=== PATIENT | female | born 1995 | race Caucasian/White ===

== ENCOUNTER 2017-07-07 17:55 | Observation (INO) | payer MEDICAID ==
[~2017-07-07] VITALS: Ht 160 cm; Wt 94.3 kg
[~2017-07-07 17:55] MED LIST changes: -NIFE10CA38 PO
[2017-07-07] MEDS ORDERED: BETAMETHASONE/ACETATE 6 MG/1ML IM ONLY SCH (18:30)
[2017-07-07] MEDS: NIFEdipine 10 MG CAP PO SCH ×2 (19:00→22:58)
[2017-07-07] MEDS ORDERED: LR(*) 1000 ML BAG 1,000 ML ONE ×2 (19:19→22:20)
[2017-07-07 19:35] LABS: PLATELET COUNT, AUTOMATED 280 K/uL (150-450)
[2017-07-07] MEDS ORDERED: TERBUTALINE SULF 1 MG/ML VIAL SC ONE (20:20)
[2017-07-07] MEDS ORDERED: TERBUTALINE SULF 1 MG/ML VIAL ONE (20:27)
--- NOTE | 2017-07-07 20:37 | History & Physical ---
History of Present Illness Age of Patient: 21 : 4 Para or TPAL: 1021 EDC per LMP: Sep 07, 2017 Estimated Gestational Age: 31.1 Chief Complaint contractions History of Present Illness The patient is a 21 year old 4 para 1021 admitted at 31 1/7 weeks estimated gestational age with an estimated date of delivery 09/07/17. Patient is admitted with complaint of contractions with positive FFN. She did have intercourse this am which may have affected the test but has continued to have pressure and tightening. No vaginal bleeding. Good movement and occasional contractions. She was evaluated for active labor. She had an uncomplicated course. Her record was reviewed. History Allergies: Coded Allergies: No Known Drug Allergies (Unverified , 01/16/17) Med Rec Home Meds Reported Medications Vits W-Ca,Fe,Fa(<1MG) ( VITAMINS) 1 Each Tablet, 1 EACH PO DAILY, TAB 01/16/17 Review of Systems Constitutional: No Fever, No Weight Loss Neurological: No Syncope, No Confusion Eyes: No Vision Change, No Loss of Vision ENT: No Hearing Loss, No Sinus Congestion Cardiovascular: No Chest Pain, No Palpitations Respiratory: No Shortness of Breath, No Cough Gastrointestinal: No Nausea, No Vomiting Genitourinary: No Dysuria, No Hematuria Musculoskeletal: No Pain, No Sprain Psychiatric: No Depression, No Anxiety Exam General Exam General Apperance: Alert/Awake/No Acute Distress Neuro: No Gross deficits Eyes: Normal Extraocular Movement & Vison ENT: Moist Mucous Membranes Neck: No Masses Cardiovascular: Regular Rate and Rhythm Respiratory: Clear to Auscultation Abdomen: Gravid - Non-Tender Musculoskeletal: No Weakness/Pain Extremities: No Cyanosis,Clubbing or Edema Integumentary: Skin Intact without Lesions or Rash Psychological: Alert & Oriented X3, Appropriate Mood & Affect Cervical Dialation: 1 Cervical Effacement (%): 50 Cervical Consistency: Soft Cervical Position: Mid Station: -3 Presentation: Vertex Uterine Contractions(Q min): 20 Uterine Contraction Strength: Mild Fetus Heart Tones: 140 FHT Category: I Medical Decision Making Data Points Result Diagram: 07/07/171919 Assessment and Plan Problems: (1) Threatened premature labor complicating , less than 37 weeks in third trimester, antepartum Assessment & Plan: FFN positive but had sex morning prior to test. Despite that has had pressure and uterine irritability through out day. Received celestone and procardia. Cervix unchanged will see if able to calm uterus through night. Copies to: BUCKY BAUMANN MD, JOHN MD Jul 07, 2017 20:37
[2017-07-07 22:00] VITALS: BP 120/59; Ht 160 cm; Wt 94.3 kg
[2017-07-07] MEDS ORDERED: DLR(*) 1000 ML BAG 1,000 ML IV PRN (22:25)
[2017-07-07] MEDS ORDERED: LR(*) 1000 ML BAG 1,000 ML IV PRN (22:25)
[2017-07-08] MEDS: NIFEdipine 10 MG CAP PO SCH ×2 (02:56→04:06)
[2017-07-08] MEDS ORDERED: NIFEdipine 10 MG CAP PO SCH (11:00)
[2017-07-08] MEDS ORDERED: NIFE10CA38 PO (18:27)
== END 2017-07-08 02:55 | disposition home or self-care (01) ==
LOC: OB 17:55
PROVIDERS: ADMIT Obstetrics & Gynecology; ATTEND Obstetrics & Gynecology
DX: O47.03 False labor before 37 completed weeks of gestation, third trimester (principal); Z3A.31 31 weeks gestation of pregnancy
CPT/HCPCS: 59025; 81001; 85025; 96372; G0378; G0379; J0702; J3105; J7120

== ENCOUNTER → 2017-07-07 | Outpatient (REF) | payer MEDICAID ==
[~2017-07-07] MED LIST: NIFE10CA38 PO; PREN-127 PO
== END ==
LOC: ZZSENDIN 16:21
PROVIDERS: ATTEND Obstetrics & Gynecology
DX: O60.03 Preterm labor without delivery, third trimester (principal)
CPT/HCPCS: 82731

== ENCOUNTER 2017-07-08 17:52 | Observation (INO) | payer MEDICAID ==
[~2017-07-08] VITALS: Ht 160 cm; Wt 94.3 kg
--- NOTE | 2017-07-08 18:15 | History & Physical ---
History of Present Illness Age of Patient: 21 : 4 Para or TPAL: 1 Estimated Gestational Age: 31.2 Chief Complaint steroid injection History of Present Illness here for repeat steroid injection due to threatened PTL yesterday. Had a positive ffn in office but later admitted to having sex. She was observed for a while yesterday and not in labor. Sent home after steroid injection. Here for repeat dose. History Obstetrical History: prior vaginal delivery at 40 weeks Allergies: Coded Allergies: No Known Drug Allergies (Unverified , 01/16/17) Med Rec Home Meds Reported Medications Vits W-Ca,Fe,Fa(<1MG) ( VITAMINS) 1 Each Tablet, 1 EACH PO DAILY, TAB 01/16/17 Review of Systems All Systems Reviewed/Normal: Yes, Except as Noted Medical Decision Making VTE Prophylasis: Adult Deep Vein Thrombosis/Pulmonary: No Pharmacological Contraindicati: Pt at Low Risk for VTE Mechanical Contraindications: Pt at Low Risk for VTE Assessment and Plan Problems: (1) Threatened labor, antepartum Assessment & Plan: Celestone to complete steroids. Observe for signs of labor and home if stable. GABRIEL COUCH MD Jul 08, 2017 18:15
[2017-07-08] MEDS ORDERED: NIFE10CA38 PO (18:27)
[2017-07-08 18:28] VITALS: BP 121/56; Ht 160 cm; Wt 94.3 kg
[2017-07-08] MEDS ORDERED: NIFEdipine 10 MG CAP PO ONE (18:30)
[2017-07-08] MEDS ORDERED: BETAMETHASONE/ACETATE 6 MG/1ML IM ONLY ONE (18:30)
== END 2017-07-08 19:40 | disposition home or self-care (01) ==
LOC: OB 17:52
PROVIDERS: ADMIT Obstetrics & Gynecology; ATTEND Obstetrics & Gynecology
DX: O47.03 False labor before 37 completed weeks of gestation, third trimester (principal); Z3A.31 31 weeks gestation of pregnancy
CPT/HCPCS: G0378; G0379; J0702

== ENCOUNTER 2017-08-30 15:27 | Inpatient (IN) | payer MEDICAID ==
[~2017-08-30] VITALS: Ht 160 cm; Wt 95.3 kg
[~2017-08-30 15:27] MED LIST changes: +NIFE10CA38 PO
[2017-08-30 15:40] VITALS: BP 127/81
[2017-08-30 16:00] VITALS: Ht 160 cm; Wt 95.3 kg
[2017-08-30] MEDS ORDERED: FAMOTIDINE(*) 20MG/50ML PREMIX 50 ML IVPB PRN (16:39)
[2017-08-30] MEDS ORDERED: OXYTOCIN 30 UNIT/D5LR 500 ML 500 ML IV PRN ×2 (16:39)
[2017-08-30] MEDS ORDERED: DLR(*) 1000 ML BAG 1,000 ML IV PRN (16:40)
[2017-08-30] MEDS ORDERED: METOCLOPRAMIDE 10 MG/2 ML SDV IVP PRN (16:40)
[2017-08-30] MEDS ORDERED: cefOXitin/DEX(*) 2GM/50ML PREM 50 ML IVPB PRN (16:40)
[2017-08-30] MEDS ORDERED: LIDOCAINE/SOD BICARB 8.4% SYR SC PRN (16:40)
[2017-08-30] MEDS ORDERED: LIDOCAINE 1% LOCAL 300 MG/30ML INJ PRN (16:40)
[2017-08-30] MEDS ORDERED: fentaNYL CITR 100 MCG/2 ML AMP IVP PRN (16:40)
[2017-08-30] MEDS ORDERED: FLUSH 10 ML SYR IVP PRN (16:40)
[2017-08-30] MEDS ORDERED: EPIDURAL KEYS XX PRN (16:50)
[2017-08-30] MEDS ORDERED: LIDOCAINE/PF 2% 200MG/10ML AMP 200 MG/10 ML AMPUL EPI PRN (16:50)
[2017-08-30] MEDS ORDERED: LIDO/EPI 2% MPF 1:200,000 20ML EPI PRN (16:50)
[2017-08-30] MEDS ORDERED: FENTANYL/ROPIVACAINE 100 ML BAG EPI PRN (16:50)
[2017-08-30] MEDS ORDERED: PENICILLIN G 5 MILLUN/100 ML 100 ML IVPB ONE (17:30)
[2017-08-30 17:31] LABS: PLATELET COUNT, AUTOMATED 289 K/uL (150-450)
[2017-08-30] MEDS: LR(*) 1000 ML BAG 1,000 ML IV SCH ×2 (17:40→19:56)
--- NOTE | 2017-08-30 18:34 | History & Physical ---
History of Present Illness Age of Patient: 21 : 4 Para or TPAL: 1021 EDC per LMP: Sep 07, 2017 Estimated Gestational Age: 38.6 Chief Complaint contractions History of Present Illness The patient is a 21 year old 4 para 1021 admitted at 38 6/7 weeks estimated gestational age with an estimated date of delivery 09/07/17. Patient is admitted with complaint of contractions. No vaginal bleeding. Good movement and regular contractions. She was evaluated for active labor. She had course complicated by threatened labor . Her record was reviewed. History Allergies: Coded Allergies: No Known Drug Allergies (Unverified , 01/16/17) Med Rec Home Meds Reported Medications Nifedipine (PROCARDIA) 10 Mg Capsule, 20 MG PO Q4H, CAPSULE 07/08/17 Vits W-Ca,Fe,Fa(<1MG) ( VITAMINS) 1 Each Tablet, 1 EACH PO DAILY, TAB 01/16/17 Exam General Exam Cardiovascular: Regular Rate and Rhythm Respiratory: Clear to Auscultation Abdomen: Gravid - Non-Tender Extremities: No Edema Cervical Dialation: 6 Cervical Effacement (%): 100 Cervical Consistency: Soft Cervical Position: Anterior Station: 0 Uterine Contractions(Q min): 4 Uterine Contraction Strength: Moderate Fetus Heart Tones: 130 Heart Tone Variabilty: Moderate FHT Category: I Medical Decision Making Data Points Result Diagram: 08/30/17 7163 Assessment and Plan Problems: (1) Active labor at term Assessment & Plan: spontaneous labor, arom clear fluid, epidural in, receiving PCN for GBS prophylaxis Copies to: BUCKY BAUMANN MD, JOHN MD Aug 30, 2017 18:34
--- NOTE | 2017-08-30 19:01 | Anesthesia OB Pre-Anes Eval ---
History of Present Illness Anesthesia Start Date: Aug 30, 2017 Anesthesia Start Time: 18:15 OB Anesthesia Diagnosis: spontaneous ROM EDC: Sep 07, 2017 : 4 Para: 1 Pain Ratin Result Diagram: 08/30/17 1723 Height (Inches): 63.00 Weight (Pounds): 210 BMI Calculated: 37.20 Past Medical History Medical History: no pertinent history Surgical History: no surgical history Previous Anesthesia: epidural Attended Childbirth Classes?: Attended [employer] Lecture Hx Anesthesia Reactions: No Hx Family Anesthesia Reaction: No Current Medications: other (pnv) Home Meds Reported Medications Nifedipine (PROCARDIA) 10 Mg Capsule, 20 MG PO Q4H, CAPSULE 07/08/17 Vits W-Ca,Fe,Fa(<1MG) ( VITAMINS) 1 Each Tablet, 1 EACH PO DAILY, TAB 01/16/17 Allergies: Coded Allergies: No Known Drug Allergies (Unverified , 01/16/17) Anesthesia OB ROS Eyes ROS: other (no contacts) Airway Class: ll GI ROS: clear liquids Last Solids Date: Aug 30, 2017 Last Solids Time: 12:00 ASA Classification: 2, E Assessment and Plan Anesthesia Plan: LEB Assessment not taking procardia now. was prescribed for pre term labor OMERO KHANNA CRNA Aug 30, 2017 19:01
--- NOTE | 2017-08-30 19:06 | Procedure Note ---
Anesthetic Placement Note Anesthesia Plan: LEB Permit for Anesthesia Signed: Yes Anesthesia Technique: Patient Sitting Anesthesia Prep: Betadine Interspace: L 2-3 Local Anesthetic: 1% Lidocaine Amount Local - cc's: 3 Anesthesia Needle: 17g Kandi/Rakesh Loss of Resistance: Air Depth of ASYA (cm): 3.5 Catheter Insertion (cm): 5 Catheter Type: Vásquez - Spring Wound Epidural Dressing: Tegaderm Anesthesia Tray: Lot Number ([id number]), Expiration Date (2018-03-28), Reference Number ([id number]) Anesthesia Medications: Epidural Test Dose: 1.5 Lido/Epi (1:200,000), Dose - mL (5), Time (18:27), Negative Epidural Loading Dose: 0.2% Ropivicaine, With Fentanyl 2mcg/ml, Dose - ml (10) , Time (18:34) Epidural Infusion: 0.2% Ropivicaine, With Fentanyl 2mcg/ml, Start Time: (18:42) Epidural Pump Setting: Bolus Dose - mL (5), Lockout - Minutes (10), Maintenance Rate - mL/hr (11), Maximum per Hour - mL (21) Complications: None Comment: Placed with no problems OMERO KHANNA CRNA Aug 30, 2017 19:06
--- NOTE | 2017-08-30 19:08 | Anesthesia Progress Note ---
Progress/Maintenance Anesthesia Note Date: Aug 30, 2017 Anesthesia Note Time: 19:05 Pain Intensity: 1 Pump: On Pump Rate (ML/HR): 11 Motor Level: Bending Knees-Bilateral Dilatation: 6 Position: Semi-FowOMERO Rodriguez CRNA Aug 30, 2017 19:08
--- NOTE | 2017-08-30 19:47 | Labor Progress Note ---
Labor Subjective Progress Notes Subjective comfortable with epidural Labor Pain: Comfortable Labor Objective Vital Signs Vital Signs Date Time Temp Pulse Resp B/P (MAP) Pulse Ox O2 Delivery O2 Flow Rate FiO2 08/30/17 15:40 98.0 97 127/81 (96) Cervical Dialation: 5 Cervical Effacement (%): 100 Cervical Consistency: Soft Cervical Position: Anterior Station: 0 Presentation: Vertex Uterine Contractions(Q min): 4 Uterine Contraction Strength: Moderate Fetus Heart Tones: 130 Heart Tone Variabilty: Moderate FHT Category: I Other Result Diagram: 08/30/17 9073 Assessment and Plan Problems: (1) Active labor at term Assessment & Plan: arom clear fluid anticipate vaginal delivery BUCKY BAUMANN MD Aug 30, 2017 19:47
[2017-08-30] MEDS ORDERED: BUPIV/EPI 0.25% 1:200,000 50ML INFIL ONE (21:19)
--- NOTE | 2017-08-30 21:25 | Anesthesia Progress Note ---
Progress/Maintenance Anesthesia Note Date: Aug 30, 2017 Anesthesia Note Time: 21:20 Pain Intensity: 8 Pump: On Dilatation: 10 Position: Semi-Fowlers Drug Bolus: Other (2% lidocaine 3 ml plus fentanyl 100 mcg) OMERO KHANNA CRNA Aug 30, 2017 21:25
[2017-08-30] MEDS ORDERED: PENICILLIN G 2.5 MILLUN/100 ML 100 ML IVPB SCH (21:30)
--- NOTE | 2017-08-30 21:40 | Anesthesia Progress Note ---
Progress/Maintenance Anesthesia Note Date: Aug 30, 2017 Anesthesia Note Time: 21:38 Pain Intensity: 6 Pump: On Drug Bolus: Other (2% lidocaine 7 ml) OMERO KHANNA CRNA Aug 30, 2017 21:40
[2017-08-30] MEDS ORDERED: MAGNESIUM HYDROXIDE* 30ML UDCP PO PRN (21:55)
[2017-08-30] MEDS ORDERED: MEASLES,MUMP,RUBELLA VAC 0.5ML SC ONE (21:55)
[2017-08-30] MEDS ORDERED: ACETAMINOPHEN 325 MG TAB PO PRN (21:55)
[2017-08-30] MEDS ORDERED: BENZOCAINE 20% 60 ML BTL TP PRN (21:55)
[2017-08-30] MEDS ORDERED: HYDROCORTISONE 2.5% CR 30GM TB PR PRN (21:55)
[2017-08-30] MEDS ORDERED: GLYCERIN/WITCH HAZEL LEAF 1 PK TOP PRN (21:55)
[2017-08-30] MEDS ORDERED: HYDROmorphone HCL 2 MG TAB PO PRN (21:55)
[2017-08-30] MEDS ORDERED: INFLUENZA VIRUS VAC 0.5 ML SYR IM ONLY ONE (21:55)
[2017-08-30] MEDS ORDERED: DIPHTH/TETANUS/ACEL. PERTUSSIS IM ONE (21:55)
--- NOTE | 2017-08-30 21:55 | OB Delivery Note ---
Delivery Note Vaginal Delivery Type: Spont. Vaginal Delivery Delivery Date: Aug 30, 2017 Delivery Time: 21:42 Delivery Anesthesia: Epidural Sex: Male Infant Weight (gms): 3336 Apgars: 1 Minute (8), 5 Minute (9) Estimated Blood Loss: 300 Notes: spontaneous labor, AROM, received epidural progressed to complete, pushed effectively. no lacerations no complications Sports Official in Attendence: No Copies to: BUCKY BAUMANN MD, JOHN MD Aug 30, 2017 21:55
--- NOTE | 2017-08-30 22:44 | Anesthesia Progress Note ---
Progress/Maintenance Anesthesia Note Date: Aug 30, 2017 Anesthesia Note Time: 22:30 Pain Intensity: 0 Pump: Off Motor Level: Bending Knees-Bilateral Assessment and Plan Anesthesia Plan: LEB Assessment: Delivery at 2140 hrs. epidural pump stopped at 2230. Anesthesia Stop Day: Aug 30, 2017 Anesthesia Stop Time: 21:45 Epidural Catheter Removal: Removed by: (OB staff) Condition ephedrine given by OB staff for low bp systolic 82. next bp systolic 106. no other problems noted. epidural catheter will be removed when finished with breast feeding. OMERO KHANNA CRNA Aug 30, 2017 22:44
[2017-08-30] MEDS ORDERED: IBUP800T37 PO (23:23)
[2017-08-30] MEDS ORDERED: HYDR2TAB4 PO (23:23)
--- NOTE | 2017-08-30 23:25 | OB/GYN Discharge Summary ---
Discharge Summary Reason for Hosp/Final Diag: (1) Active labor at term (2) care following vaginal delivery Hospital Course & Plan: Spontaneous labor, vaginal delivery on day 1, Pain controlled, Tolerating diet and activity. Baby . Normal lochia. Lates Vital Signs Vital Signs Date Time Temp Pulse Resp B/P (MAP) Pulse Ox O2 Delivery O2 Flow Rate FiO2 08/30/17 15:40 98.0 97 127/81 (96) Weight (Pounds): 210 Result Diagram: 08/30/17 1723 Condition: Improved Discharge: Home, Self [facility] Meds Active Scripts Ibuprofen (IBUPROFEN) 800 Mg Tablet, 1 TAB PO Q8H, #30 TAB 0 Refills Take with food every 8 hours. Prov:BUCKY RUEDA MD 08/30/17 Hydromorphone Hcl (HYDROMORPHONE HCL) 2 Mg Tablet, 2-4 MG PO Q4H for PAIN, #20 TAB 0 Refills Prov:BUCKY RUEDA MD 08/30/17 Reported Medications Nifedipine (PROCARDIA) 10 Mg Capsule, 20 MG PO Q4H, CAPSULE 07/08/17 Vits W-Ca,Fe,Fa(<1MG) ( VITAMINS) 1 Each Tablet, 1 EACH PO DAILY, TAB 01/16/17 Follow up with: Dr. Rueda [phone] Follow up in: 6 wks PP or PO Discharge Diet: As Tolerates Discharge Activity: Pelvic Rest Copies to: BUCKY RUEDA MD, JOHN MD Aug 30, 2017 23:24
[2017-08-30] MEDS: LANOLIN OINT 7 GM TUBE TP PRN (23:40)
[2017-08-31 00:16] VITALS: BP 124/56
[2017-08-31] MEDS: IBUPROFEN 800 MG TAB PO SCH ×3 (00:34→16:29)
[2017-08-31 03:45] VITALS: BP 116/55
[2017-08-31] MEDS ORDERED: HYDROmorphone HCL 2 MG TAB PO PRN (06:10)
[2017-08-31 07:40] VITALS: BP 117/59
--- NOTE | 2017-08-31 08:15 | OB/GYN Progress Note ---
OB Subjective Progress Notes Subjective Pain controlled, Tolerating diet and activity. Baby . Normal lochia. GI: POS Flatus, NEG Nausea, NEG Vomiting : Voiding Well Pain: Mild OB Objective Physical Exam Vital Signs Date Time Temp Pulse Resp B/P (MAP) Pulse Ox O2 Delivery O2 Flow Rate FiO2 08/31/17 03:45 99.4 98 16 116/55 (75) 93 Room Air Cardiovascular: Regular Rate and Rhythm Respiratory: Clear to Auscultation Abdomen: Fundus Firm Extremities: Edema Result Diagram: 08/31/17 0551 Assessment and Plan Problems: (1) Active labor at term (2) care following vaginal delivery Assessment & Plan: Pain controlled, Tolerating diet and activity. Baby . Normal lochia. BUCKY BAUMANN MD Aug 31, 2017 08:15
[2017-08-31] MEDS: DOCUSATE CALCIUM 240 MG CAP PO SCH ×3 (08:42→23:11)
[2017-08-31] MEDS ORDERED: MULTIVITAMINS (PRENATAL) TAB PO SCH (09:00)
[2017-08-31 10:45] VITALS: BP 116/58
[2017-08-31] MEDS ORDERED: PENICILLIN G 2.5 MILLUN/100 ML 100 ML IVPB SCH (13:30)
[2017-08-31 15:50] VITALS: BP 117/56
[2017-08-31 19:50] VITALS: BP 118/67
[2017-08-31] MEDS: LANOLIN OINT 7 GM TUBE TP PRN (23:07)
== END 2017-09-01 00:15 | disposition home or self-care (01) | DRG 775 ==
LOC: OBSVTOIN 15:27 → OB 15:27 → INTOOBSV 15:27 → UNDOADMOB 15:27
PROVIDERS: ADMIT Obstetrics & Gynecology; ATTEND Obstetrics & Gynecology
PROC: 10E0XZZ Delivery of Products of Conception, External Approach (ICD-10-PCS; principal; 2017-08-30)
PROC: 10907ZC Drainage of Amniotic Fluid, Therapeutic from Products of Conception, Via Natural or Artificial Opening (ICD-10-PCS; 2017-08-30)
DX: O99.824 Streptococcus B carrier state complicating childbirth (principal); Z37.0 Single live birth; Z3A.38 38 weeks gestation of pregnancy; Z91.030 Bee allergy status; Z87.891 Personal history of nicotine dependence
CPT/HCPCS: 36415; 85025; 85027; 86850; 86900; 86901; J2001; J2540; J2590; J7120

== ENCOUNTER 2019-01-03 00:25 | Emergency (ER) | payer MEDICAID ==
[2017-08-30 16:00] VITALS: Wt 81.6 kg
[~2019-01-03 00:25] MED LIST changes: +HYDR2TAB4 PO; +IBUP800T37 PO
--- NOTE | 2019-01-03 00:28 | ER Report ---
History and Physical Time Seen By MD: 00:25 HPI/ROS CHIEF COMPLAINT: Abdominal cramping, 9 weeks HISTORY OF PRESENT ILLNESS: 23-year-old female at approximately 9 weeks', LMP was 11/02/18. Patient's had no OB care at this point. Patient notes some spotting 2 weeks ago. She's had some intermittent cramping in variable locations in her lower abdomen. Tonight the cramping is worse. Which prompts her to come in for evaluation. She denies dysuria or hematuria. She denies vaginal spotting at present. Patient denies nausea or vomiting. Patient denies fever or chills. REVIEW OF SYSTEMS: Respiratory: No cough, no dyspnea. Cardiovascular: No chest pain, no palpitations. Gastrointestinal: As above Musculoskeletal: No back pain. Allergies: Coded Allergies: No Known Drug Allergies (Unverified , 01/03/19) Home Meds Active Scripts Cephalexin Monohydrate (CEPHALEXIN) 500 Mg Cap, 500 MG PO TID for infection, #20 CAP TAKE 1 CAPSULE BY MOUTH EVERY SIX HOURS Prov:CLINTON BRINK DO 01/03/19 Reported Medications Vits W-Ca,Fe,Fa(<1MG) ( VITAMINS) 1 Each Tablet, 1 EACH PO DAILY, TAB 01/16/17 Discontinued Scripts Ibuprofen (IBUPROFEN) 800 Mg Tablet, 1 TAB PO Q8H, #30 TAB 0 Refills Take with food every 8 hours. Prov:BUCKY BAUMANN MD 08/30/17 Hydromorphone Hcl (HYDROMORPHONE HCL) 2 Mg Tablet, 2-4 MG PO Q4H for PAIN, #20 TAB 0 Refills Prov:BUCKY BAUMANN MD 08/30/17 Reviewed Nurses Notes: Yes Old Medical Records Reviewed: Yes Hx Smoking: Yes Smoking Status: Former Smoker Exposure to Second Hand Smoke?: Yes Constitutional Vital Sign - Last 24 Hours 01/03/19 01/03/19 01/03/19 01/03/19 00:25 00:29 00:30 00:43 Temp 98.7 Pulse ??? 118 Resp 12 B/P (MAP) 114/67 114/67 (83) 95/63 (74) Pulse Ox 97 O2 Delivery Room Air 01/03/19 01/03/19 01/03/19 01/03/19 00:44 00:45 00:51 00:54 Pulse 93 99 85 B/P (MAP) 116/74 (88) 116/63 (80) 104/60 (75) 95/63 (74) 116/74 (88) 116/63 (80) 01/03/19 01/03/19 01/03/19 01/03/19 00:55 01:00 01:10 01:25 Pulse 87 93 91 B/P (MAP) 96/56 (69) Pulse Ox 95 97 96 01/03/19 01/03/19 01/03/19 01/03/19 01:30 01:40 01:55 02:00 Pulse 91 89 B/P (MAP) 103/60 (74) 91/60 (70) Pulse Ox 95 95 Intake and Output 01/02/19 01/02/19 01/03/19 15:02 23:02 07:02 Intake Total 1000 ml Balance 1000 ml Physical Exam Vital signs stable,, tachycardic to 118 afebrile, pulse ox normal General Appearance: The patient is alert, has no immediate need for airway protection and no current signs of toxicity. Skin warm, dry, pink, no acute distress Eyes: Pupils equal and round no injection. Respiratory: Chest is non tender, lungs are clear to auscultation. Cardiac: regular rate and rhythm Gastrointestinal: Abdomen is soft and non tender, no masses, bowel sounds normal. Musculoskeletal: Neck: Neck is supple and non tender. Extremities have full range of motion and are non tender. Skin: No rashes or lesions. DIFFERENTIAL DIAGNOSIS: After history and physical exam differential diagnosis was considered for vaginal bleeding including but not limited to ectopic , menses, miscarriage, and dysfunctional uterine bleeding. Additionally,abdominal pain in a female including but not limited to ovarian cyst, pelvic inflammatory disease, ovarian torsion, urinary tract infection, and appendicitis. Medical Decision Making Data Points Result Diagram: 01/03/19 0032 01/03/19 0032 Laboratory Hematology Test 01/03/19 00:28 01/03/19 00:32 Urine Color Yellow Urine Clarity Cloudy Urine pH 6.0 pH (4.8-9.5) Urine Specific [place] 1.018 Urine Protein Negative mg/dL (NEGATIVE) Urine Glucose (UA) Negative mg/dL (NEGATIVE) Urine Ketones Negative mg/dL (NEGATIVE) Urine Blood Negative (NEGATIVE) Urine Nitrite Negative (NEGATIVE) Urine Bilirubin Negative (NEGATIVE) Urine Urobilinogen Negative mg/dL (0.2-1.9) Urine Leukocyte Esterase Large (NEGATIVE) Urine RBC 6 /HPF (0-2/HPF) Urine WBC 12 /HPF (0-5/HPF) Urine WBC Clumps Few /HPF Urine Squamous Epithelial Cells Many /LPF (</=FEW) Urine Transitional Epithelial Cells Many /LPF (NONE-FEW) Urine Bacteria Negative /HPF (NONE-FEW) Urine Mucus Few /HPF (NONE-FEW) Red Blood Count 5.11 M/uL (4.17-5.56) Mean Corpuscular Volume 82.7 fL (80.0-96.0) Mean Corpuscular Hemoglobin 28.5 pg (26.0-33.0) Mean Corpuscular Hemoglobin Concent 34.4 g/dL (32.0-36.0) Red Cell Distribution Width 14.6 % (11.5-14.5) Mean Platelet Volume 7.8 fL (7.2-11.1) Neutrophils (%) (Auto) 76.5 % (39.4-72.5) Lymphocytes (%) (Auto) 14.3 % (17.6-49.6) Monocytes (%) (Auto) 6.5 % (4.1-12.4) Eosinophils (%) (Auto) 1.4 % (0.4-6.7) Basophils (%) (Auto) 1.3 % (0.3-1.4) Nucleated RBC Relative Count (auto) 0.1 /100WBC Neutrophils # (Auto) 10.5 K/uL (2.0-7.4) Lymphocytes # (Auto) 2.0 K/uL (1.3-3.6) Monocytes # (Auto) 0.9 K/uL (0.3-1.0) Eosinophils # (Auto) 0.2 K/uL (0.0-0.5) Basophils # (Auto) 0.2 K/uL (0.0-0.1) Nucleated RBC Absolute Count (auto) 0.01 K/uL Peripheral Blood Smear Yes Y/N Prothrombin Time 13.2 seconds (12.0-14.4) Prothromb Time International Ratio 1.00 Activated Partial Thromboplast Time 27 seconds (23-35) Sodium Level 140 mmol/L (137-145) Potassium Level 3.9 mmol/L (3.5-5.0) Chloride Level 110 mmol/L (98-107) Carbon Dioxide Level 20 mmol/L (22-31) Blood Urea Nitrogen 9 mg/dl (7-18) Creatinine 0.70 mg/dl (0.52-1.04) Glomerular Filtration Rate Calc > 60.0 Random Glucose 105 mg/dl (75-110) Calcium Level 9.6 mg/dl (8.4-10.2) Total Bilirubin 0.3 mg/dl (0.2-1.3) Aspartate Amino Transf (AST/SGOT) 17 U/L (0-35) Alanine Aminotransferase (ALT/SGPT) 27 U/L (0-56) Alkaline Phosphatase 57 U/L (0-126) Total Protein 7.5 g/dl (6.3-8.2) Albumin 4.2 g/dl (3.5-5.0) Human Chorionic Gonadotropin, Qual Positive (NEGATIVE) Human Chorionic Gonadotropin, Quant 79696 mIU/ml Chemistry Test 01/03/19 00:28 01/03/19 00:32 Urine Color Yellow Urine Clarity Cloudy Urine pH 6.0 pH (4.8-9.5) Urine Specific [place] 1.018 Urine Protein Negative mg/dL (NEGATIVE) Urine Glucose (UA) Negative mg/dL (NEGATIVE) Urine Ketones Negative mg/dL (NEGATIVE) Urine Blood Negative (NEGATIVE) Urine Nitrite Negative (NEGATIVE) Urine Bilirubin Negative (NEGATIVE) Urine Urobilinogen Negative mg/dL (0.2-1.9) Urine Leukocyte Esterase Large (NEGATIVE) Urine RBC 6 /HPF (0-2/HPF) Urine WBC 12 /HPF (0-5/HPF) Urine WBC Clumps Few /HPF Urine Squamous Epithelial Cells Many /LPF (</=FEW) Urine Transitional Epithelial Cells Many /LPF (NONE-FEW) Urine Bacteria Negative /HPF (NONE-FEW) Urine Mucus Few /HPF (NONE-FEW) White Blood Count 13.7 k/uL (4.5-11.0) Red Blood Count 5.11 M/uL (4.17-5.56) Hemoglobin 14.6 g/dL (12.0-16.0) Hematocrit 42.3 % (34.0-47.0) Mean Corpuscular Volume 82.7 fL (80.0-96.0) Mean Corpuscular Hemoglobin 28.5 pg (26.0-33.0) Mean Corpuscular Hemoglobin Concent 34.4 g/dL (32.0-36.0) Red Cell Distribution Width 14.6 % (11.5-14.5) Platelet Count 341 K/uL (150-450) Mean Platelet Volume 7.8 fL (7.2-11.1) Neutrophils (%) (Auto) 76.5 % (39.4-72.5) Lymphocytes (%) (Auto) 14.3 % (17.6-49.6) Monocytes (%) (Auto) 6.5 % (4.1-12.4) Eosinophils (%) (Auto) 1.4 % (0.4-6.7) Basophils (%) (Auto) 1.3 % (0.3-1.4) Nucleated RBC Relative Count (auto) 0.1 /100WBC Neutrophils # (Auto) 10.5 K/uL (2.0-7.4) Lymphocytes # (Auto) 2.0 K/uL (1.3-3.6) Monocytes # (Auto) 0.9 K/uL (0.3-1.0) Eosinophils # (Auto) 0.2 K/uL (0.0-0.5) Basophils # (Auto) 0.2 K/uL (0.0-0.1) Nucleated RBC Absolute Count (auto) 0.01 K/uL Peripheral Blood Smear Yes Y/N Prothrombin Time 13.2 seconds (12.0-14.4) Prothromb Time International Ratio 1.00 Activated Partial Thromboplast Time 27 seconds (23-35) Glomerular Filtration Rate Calc > 60.0 Calcium Level 9.6 mg/dl (8.4-10.2) Total Bilirubin 0.3 mg/dl (0.2-1.3) Aspartate Amino Transf (AST/SGOT) 17 U/L (0-35) Alanine Aminotransferase (ALT/SGPT) 27 U/L (0-56) Alkaline Phosphatase 57 U/L (0-126) Total Protein 7.5 g/dl (6.3-8.2) Albumin 4.2 g/dl (3.5-5.0) Human Chorionic Gonadotropin, Qual Positive (NEGATIVE) Human Chorionic Gonadotropin, Quant 91459 mIU/ml Coagulation Test 01/03/19 00:32 Prothrombin Time 13.2 seconds Prothromb Time International Ratio 1.00 Activated Partial Thromboplast Time 27 seconds Urinalysis Test 01/03/19 00:28 Urine Color Yellow Urine Clarity Cloudy Urine pH 6.0 pH (4.8-9.5) Urine Specific [place] 1.018 Urine Protein Negative mg/dL (NEGATIVE) Urine Glucose (UA) Negative mg/dL (NEGATIVE) Urine Ketones Negative mg/dL (NEGATIVE) Urine Blood Negative (NEGATIVE) Urine Nitrite Negative (NEGATIVE) Urine Bilirubin Negative (NEGATIVE) Urine Urobilinogen Negative mg/dL (0.2-1.9) Urine Leukocyte Esterase Large (NEGATIVE) Urine RBC 6 /HPF (0-2/HPF) Urine WBC 12 /HPF (0-5/HPF) Urine WBC Clumps Few /HPF Urine Squamous Epithelial Cells Many /LPF (</=FEW) Urine Transitional Epithelial Cells Many /LPF (NONE-FEW) Urine Bacteria Negative /HPF (NONE-FEW) Urine Mucus Few /HPF (NONE-FEW) EKG/Imaging Imaging Results: Ultrasound of the was obtained. The results of the study are ultrasound: Indication: Persistent pain and recent vaginal bleeding. Technique: Transvaginal imaging, with Doppler. Comparison: None available. position and heart rate: There is a single live early intrauterine gestation. The heart rate is 185. anatomy: The embryo, gestational sac, and yolk sac appear unremarkable. There are no signs of subchorionic hemorrhage. Measurements, EFA, and EDC: The CRL measures 19.2 mm, corresponding to 8 weeks 4 days. The YAIR is 08/11/2019. Cervical length: 3.2 cm. The cervix is closed. The maternal ovaries and adnexal structures appear unremarkable. No fluid collection or free fluid is identified. IMPRESSION: There is a single live early intrauterine gestation. The estimated age is 8 weeks 4 days. No acute abnormality is identified. The study was read by the radiologist. I viewed the images myself on the PACS system. ED Course/Re-evaluation Clinical Indication for ER IV: Hydration, IV Access ED Course Patient was admitted to an examination room. H&P was done. The differential diagnoses was considered. Patient was stable vital signs, no active vaginal bleeding. Patient presents with crampy lower abdominal pain. It's been migr atory from left to right and in the midline over the last 2 weeks. She's not had any cramps like this in her previous pregnancies. Patient a peripheral IV established. She was given 1 L normal saline bolus. Her orthostatics are unremarkable. Patient's diagnostic studies were sent off. A transvaginal ultrasound was performed to rule out ectopic . The ultrasound was unremarkable and showed an intact IUP at 8 weeks and 2 days. Patient's urinalysis did show signs of infection. She'll be treated with Keflex for UTI. A urinary culture was ordered as well as GC and Chlamydia. Patient advised to follow-up with [facility] this next week for recheck. Decision to Disposition Date: Jan 03, 2019 Decision to Disposition Time: 02:05 Depart Departure Latest Vital Signs Vital Signs Date Time Temp Pulse Resp B/P (MAP) Pulse Ox O2 Delivery O2 Flow Rate FiO2 01/03/19 02:00 91/60 (70) 01/03/19 01:55 89 95 01/03/19 00:29 98.7 12 Room Air Impression: Primary Impression: Abdominal pain Additional Impressions: 8 weeks gestation of Urinary tract infection Condition: Improved Disposition: HOME OR SELF-CARE New Scripts Cephalexin Monohydrate (CEPHALEXIN) 500 Mg Cap 500 MG PO TID for infection, #20 CAP TAKE 1 CAPSULE BY MOUTH EVERY SIX HOURS Prov: CLINTON BRINK DO 01/03/19 Patient Instructions: Abdominal Pain (ED), First Trimester (ED), Urinary Tract Infection in Women (ED) Additional Instructions: Follow-up with your [facility] doctor this week Problem Qualifiers Primary Impression: Abdominal pain Abdominal location: lower abdomen, unspecified Qualified Codes: R10.30 - Lower abdominal pain, unspecified Additional Impressions: Urinary tract infection Urinary tract infection type: acute cystitis Hematuria presence: without hematuria Qualified Codes: N30.00 - Acute cystitis without hematuria CLINTON BRINK DO Jan 03, 2019 00:28
[2019-01-03] MEDS ORDERED: NS(*) 0.9% 1000 ML BAG 1,000 ML IV ONE (00:29)
[2019-01-03 00:55] LABS: PLATELET COUNT, AUTOMATED 341 K/uL (150-450)
[2019-01-03 02:00] VITALS: BP 91/60
[2019-01-03] MEDS ORDERED: CEPHALEXIN MONO 500 MG CAP PO ONE ×2 (02:10→02:15)
[2019-01-03] MEDS ORDERED: CEPH500C24 PO (02:12)
--- NOTE | 2019-01-03 02:32 | RADIOLOGY IMAGING REPORT ---
FACILITY: [facility] PATIENT NAME: Kirsten Cruz : 1995 MR: [id number] V: [id number] EXAM DATE: ORDERING PHYSICIAN: CLINTON BRINK TECHNOLOGIST: Location: [facility] Patient: Kirsten Cruz : 1995 Visit/Account:[id number] Date of Sevice: 01/03/2019 ultrasound: Indication: Persistent pain and recent vaginal bleeding. Technique: Transvaginal imaging, with Doppler. Comparison: None available. position and heart rate: There is a single live early intrauterine gestation. The heart r ate is 185. anatomy: The embryo, gestational sac, and yolk sac appear unremarkable. There are no signs of s ubchorionic hemorrhage. Measurements, EFA, and EDC: The CRL measures 19.2 mm, corresponding to 8 weeks 4 days. The YAIR is 07/30. Cervical length: 3.2 cm. The cervix is closed. The maternal ovaries and adnexal structures appear unremarkable. No fluid collection or free fluid is identified. IMPRESSION: There is a single live early intrauterine gestation. The estimated age is 8 weeks 4 days. No acute abnormality is identified. Report Dictated By: Jason Faulkner MD at 01/03/2019 2:21 AM Report E-Signed By: Jason Faulkner MD at 01/03/2019 2:26 AM [id number]
== END 2019-01-03 02:13 | disposition home or self-care (01) ==
LOC: ER 00:37
DX: O23.41 Unspecified infection of urinary tract in pregnancy, first trimester (principal); Z3A.08 8 weeks gestation of pregnancy; R10.30 Lower abdominal pain, unspecified
CPT/HCPCS: 76817; 81001; 84702; 84703; 85025; 85610; 85730; 87088; 87491; 87591; 96360; 99284; J7030; 82040; 82247; 82310; 82374; 82435; 82565; 82947; 84075; 84132; 84155; 84295; 84450; 84460; 84520